=== PATIENT | female | born 1990 | race Native Hawaiian/Other Pacific Islander ===

== ENCOUNTER 2024-12-26 14:05 | Emergency (ER) | payer SELFPAY ==
[2024-12-26 14:23] VITALS: BP 125/81; PULSE 88; RESP 20; TEMP 36.9; O2SAT 98; BMI 23.3
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
[2024-12-26 17:08] LABS: HCG Qualitative Urine. Negative (Negative)
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
== END 2024-12-26 17:44 | disposition home or self-care (01) ==
PROVIDERS: Emergency Provider Emergency Medicine
DX: T76.21XA Adult sexual abuse, suspected, initial encounter (principal); X58.XXXA Exposure to other specified factors, initial encounter
CPT/HCPCS: 72100; 81025; 96372; 99284; J0696; J9999; Q0144